=== PATIENT | male | born 1970 | race Caucasian/White ===

== ENCOUNTER 2020-04-30 11:00 | Emergency (ER) | payer SELFPAY ==
[~2020-04-30] VITALS: Ht 167.6 cm; Wt 78.5 kg
[2020-04-30 11:22] VITALS: Ht 167.6 cm; Wt 78.5 kg
[2020-04-30 12:02] LABS: microscopic required? NO
[2020-04-30 12:24] LABS: UA SPECIFIC GRAVITY 1.015 (1.005-1.035); urine erythrocyte NEGATIVE (NEGATIVE)
[2020-04-30 12:32] LABS: BASOPHIL % 0.2 % (0-2); PLATELET COUNT 415 x10^3mcL (130-400); RED CELL DISTRIBUTION WIDTH 12.6 % (11.5-14.5)
[2020-04-30 13:00] LABS: ALBUMIN 4.3 g/dL (3.4-5.0); ALKALINE PHOSPHATASE 72 U/L (46-116); ALT/SGPT 26 U/L (16-63); AST/SGOT 14 U/L (15-37); BILIRUBIN TOTAL 0.97 mg/dL (0.20-1.00); CALCIUM 9.5 mg/dL (8.5-10.1); CARBON DIOXIDE 25.5 mmol/L (21-32); CHLORIDE SERUM 101 mmol/L (98-107); CREATININE SERUM 0.9 mg/dL (0.7-1.3); GFR1 > 60 mL/min; GLUCOSE SERUM 115 mg/dL (74-106); POTASSIUM SERUM 3.4 mmol/L (3.5-5.1); SODIUM SERUM 137 mmol/L (136-145); TOTAL PROTEIN, SERUM 7.8 g/dL (6.4-8.2)
[2020-04-30 14:36] VITALS: BP 134/89
== END 2020-04-30 14:36 | disposition home or self-care (01) ==
LOC: ED 11:00
PROVIDERS: Emergency Medicine
DX: R10.31 Right lower quadrant pain (principal); Z98.890 Other specified postprocedural states
CPT/HCPCS: J1885; J7030